=== PATIENT | male | born 1995 | race Caucasian/White ===

== ENCOUNTER 2018-11-06 10:15 | Outpatient (CLI) | payer OTHER ==
[~2018-11-06 10:15] MED LIST: ADVAIR 100-501 EACH IH; BENADRYL25 MG PO; MEDROL4 MG PO; MEDROLPACK PO; PEPCID40 MG PO; VENTOLIN HFA18 GM IH
== END 2018-11-06 10:27 | disposition home or self-care (01) ==
LOC: SONOGRAMA 10:15 → MAMO-SONO 10:45
DX: N50.89 Other specified disorders of the male genital organs (principal); N50.9 Disorder of male genital organs, unspecified; I86.1 Scrotal varices

== ENCOUNTER 2018-11-06 11:05 | Outpatient (CLI) | payer OTHER | END 2018-11-06 13:01 | disposition home or self-care (01) | LOC: LAB 11:05 | DX: D49.59 Neoplasm of unspecified behavior of other genitourinary organ (principal) ==

== ENCOUNTER → 2020-02-16 09:12 | Outpatient (CLI) | payer OTHER | END | disposition home or self-care (01) | LOC: LAB 09:12 | DX: D64.89 Other specified anemias (principal); N39.0 Urinary tract infection, site not specified; D68.8 Other specified coagulation defects; J44.9 Chronic obstructive pulmonary disease, unspecified; D49.59 Neoplasm of unspecified behavior of other genitourinary organ ==

== ENCOUNTER 2020-02-18 14:07 | Outpatient (CLI) | payer OTHER | END 2020-02-18 14:15 | disposition home or self-care (01) | LOC: SONOGRAMA 14:07 | DX: N28.89 Other specified disorders of kidney and ureter (principal); N20.0 Calculus of kidney; N13.39 Other hydronephrosis ==